=== PATIENT | female | born 1965 | race Caucasian/White ===

== ENCOUNTER 2019-01-02 08:58 | Emergency (ER) | payer OTHER ==
--- NOTE | 2019-01-02 10:19 | Emergency Department Record ---
History of Present Illness - General Chief complaint: Lower Extremity Pain Stated complaint: FALL,WC,LT KNEE Time Seen by Provider: 01/02/19 09:30 Source: Patient Mode of Arrival: Ambulatory Limitations: No limitations - History of Present Illness Initial comments: pt tripped and injured l knee. she is able to bear weight Complaint: Joint pain Location: Left, Knee Severity scale (1-10): 1 Quality: Aching Consistency: Constant Improves with: Nothing Worsens with: Nothing Associated Symptoms: Denies other symptoms - Related Data Home Medications Medication Instructions Recorded Confirmed Last Taken Baclofen 10 mg PO DAILY 01/02/19 01/02/19 01/02/19 Cholecalciferol (Vitamin D3) 2,000 unit PO DAILY 01/02/19 01/02/19 01/02/19 [Vitamin D3] Cyanocobalamin (Vitamin B-12) 1,000 mcg PO DAILY 01/02/19 01/02/19 01/02/19 [Vitamin B-12] Dalfampridine [Ampyra] 10 mg PO DAILY 01/02/19 01/02/19 01/02/19 Gabapentin 300 mg PO TID 01/02/19 01/02/19 01/02/19 Modafinil [Provigil] 100 mg PO BID 01/02/19 01/02/19 01/02/19 Allergies Allergy/AdvReac Type Severity Reaction Status Date / Time No Known Drug Allergies Allergy Verified 01/02/19 09:08 Travel Screening - Travel/Exposure Within Last 30 Days Have you traveled within the last 30 days?: No Review of Systems Reviewed: No additional complaints except as noted below Constitutional: Reports: As per HPI. Denies: Chills, Fever, Malaise, Night sweats, Weakness, Weight change Eyes: Reports: As per HPI. Denies: Eye discharge, Eye pain, Photophobia, Vision change ENT: Reports: As per HPI. Denies: Congestion, Dental pain, Ear pain, Epistaxis , Hearing loss, Throat pain Respiratory: Reports: As per HPI. Denies: Cough, Dyspnea, Hemoptysis, Stridor, Wheezes Cardiovascular: Reports: As per HPI. Denies: Arrhythmia, Chest pain, Dyspnea on exertion, Edema, Murmurs, Orthopnea, Palpitations, Paroxysmal nocturnal dyspnea, Rheumatic Fever, Syncope Endocrine: Reports: As per HPI. Denies: Fatigue, Heat or cold intolerance, Polydipsia, Polyuria Gastrointestinal: Reports: As per HPI. Denies: Abdominal pain, Constipation, Diarrhea, Hematemesis, Hematochezia, Melena, Nausea, Vomiting Genitourinary: Reports: As per HPI. Denies: Abnormal menses, Discharge, Dyspareunia, Dysuria, Frequency, Hematuria, Incontinence, Retention, Urgency Musculoskeletal: Reports: As per HPI. Denies: Arthralgia, Back pain, Gout, Joint swelling, Myalgia, Neck pain Skin: Reports: As per HPI. Denies: Bruising, Change in color, Change in hair/ nails, Lesions, Pruritus, Rash Neurological: Reports: As per HPI. Denies: Abnormal gait, Confusion, Headache, Numbness, Paresthesias, Seizure, Tingling, Tremors, Vertigo, Weakness Psychiatric: Reports: As per HPI. Denies: Anxiety, Auditory hallucinations, Depression, Homicidal thoughts, Suicidal thoughts, Visual hallucinations Hematological/Lymphatic: Reports: As per HPI. Denies: Anemia, Blood Clots, Easy bleeding, Easy bruising, Swollen glands Past Medical History - SOCIAL HISTORY Smoking Status: Never smoker Alcohol Use: Occasional Drug Use: None - RESPIRATORY Hx Respiratory Disorders: Yes Hx Asthma: Yes Hx Pneumonia: Yes - CARDIOVASCULAR Hx Cardio Disorders: No - NEURO Hx Neuro Disorders: Yes Comment:: MS - GI Hx GI Disorders: No - Hx Genitourinary Disorders: No - ENDOCRINE Hx Endocrine Disorders: No - MUSCULOSKELETAL Hx Musculoskeletal Disorders: No - PSYCH Hx Psych Problems: No - HEMATOLOGY/ONCOLOGY Hx Hematology/Oncology Disorders: No Family Medical History Any Significant Family History?: Yes Hx Cancer: Grandparents Physical Exam - General General Appearance: Alert, Oriented x3, Cooperative, No acute distress - Head Head exam: Normal inspection - Eye Eye exam: Normal appearance, PERRL, EOMI Pupils: Normal accommodation - ENT ENT exam: Normal exam, Mucous membranes moist, Normal external ear exam, Normal orophraynx Ear exam: Normal external inspection. negative: External canal tenderness Nasal Exam: Normal inspection. negative: Discharge, Sinus tenderness Mouth exam: Normal external inspection, Tongue normal Teeth exam: Normal inspection. negative: Dental caries Throat exam: Normal inspection. negative: Tonsillar erythema, Tonsillar exudate - Neck Neck exam: Normal inspection, Full ROM. negative: Tenderness - Respiratory Respiratory exam: Normal lung sounds bilaterally. negative: Respiratory distress - Cardiovascular Cardiovascular Exam: Regular rate, Normal rhythm, Normal heart sounds - GI/Abdominal GI/Abdominal exam: Soft, Normal bowel sounds. negative: Tenderness - Rectal Rectal exam: Deferred - exam: Deferred - Extremities Extremities exam: Normal inspection, Full ROM, Normal capillary refill, Tenderness (l knee) - Back Back exam: Reports: Normal inspection, Full ROM. Denies: Muscle spasm, Rash noted, Tenderness - Neurological Neurological exam: Alert, CN II-XII intact, Normal gait, Oriented X3 - Psychiatric Psychiatric exam: Normal affect, Normal mood - Skin Skin exam: Abrasion, Dry, Intact, Normal color, Warm Distribution of rash: LLE Course Vital Signs 01/02/19 09:04 Temperature 97.5 F L Pulse Rate 80 Respiratory 20 Rate Blood Pressure 174/96 Pulse Ox 99 Disposition Disposition: Discharge Clinical Impression: Abrasion, left knee, initial encounter Disposition: Home, Self-Care Condition: (1) Good Instructions: Abrasion (ED) Additional Instructions: follow up with family doctor. return sooner if worse Quality - Quality Measures Quality Measures: N/A - Blood Pressure Screening Does Patient Have Any of the Following: No Blood Pressure Classification: Hypertensive Reading Systolic Measurement: 174 Diastolic Measurement: 96 Screening for High Blood Pressure: < First Hypertensive BP, F/U Documented > [ [id number]] First Hypertensive Follow-up Interventions: Follow-up with rescreen GT 1 day and LT 4 weeks.
--- NOTE | 2019-01-04 06:27 | RADIOLOGY REPORT ---
DATE: 01/02/2019. EXAM: LEFT KNEE RADIOGRAPHS. HISTORY: Fall with anterior knee pain. TECHNIQUE: Four views of the left knee. COMPARISON: None. FINDINGS: No appreciable knee joint effusion. No acute fracture or dislocation seen. No significant degenerative findings. IMPRESSION: NO ACUTE FINDINGS. JOB NUMBER: [id number] MTDD
== END 2019-01-02 10:42 | disposition home or self-care (01) ==
LOC: ER 08:58
DX: S80.212A Abrasion, left knee, initial encounter (principal); W18.30XA Fall on same level, unspecified, initial encounter; Y99.9 Unspecified external cause status
CPT/HCPCS: 99283